=== PATIENT | female | born 1940 | race Caucasian/White ===

== ENCOUNTER → 2016-10-20 | Outpatient (CLI) | payer MEDICARE, BC ==
[~2016-10-20] MED LIST: B COMPLEX1 TAB.SA PO; EVISTA60 M1 PO; EVISTA60 MG PO; FISH OIL 1,0001 CAP PO; FOLIC ACID PO; LEUCOVORIN CALCI5 MG PO; LOTREL 5/20 MG1 CAP PO; METHOTREXATE2.5 MG PO; MULTI-VIT/MIN P1 TAB PO; OYSTER CALCIUM500 MG PO; SYNTHROID PO; VITAMIN D250000 UNIT PO; ZETIA PO
--- NOTE | ~2016-10-20 | MY29 ---
[facility] A Service of [facility] / [facility] RADIOLOGY TEXT RESULTS PATIENT: GERA WU LOCATION: [facility] : 38 UNIT #: [id number] AGE: [address]: Melita Lechuga MD SEX: F ORDER DR: [id number] [facility] [address] [place], [place] [address] [id number] O MR#: [id number] #: [id number] NAME: GERA WU : 1940 SEX: F STUDY DATE/TIME: 10/20/2016 11:38 UNIT: [facility] ROOM: STUDY DESCRIPTION: MY NIC SCREENING W/ CAD BILAT Attending Physician: Melita Lechuga M.D. Referring Physician: Melita Lechuga M.D. Ordering Physician: Melita Lechuga M.D. Primary Care Physician: Melita Lechuga M.D. MEDICAL IMAGING REPORT This report is preliminary unless electronic signature is present EXAM Digital screening mammogram 10/20/2016 HISTORY 76-year-old woman no risk elevation. Annual screen. COMPARISON Mammograms date to 01/21/2012 with most recent 06/02/2015 FINDINGS Digital imaging of each breast was completed utilizing screening protocol. Review includes FDA-approved CAD device. Breast parenchyma is predominantly fatty replaced. Subareolar opacities and duct prominence bilaterally are stable. I see no suspicious mass characteristics. There are no suspicious microcalcifications and no architectural deformity. IMPRESSION Negative mammogram. Annual screening recommended. Patients over the age of 40 are entered into a reminder system with target due date for the next mammogram. A result letter will also be sent to the patient. BIRADS: 1, negative. Dictated by... Nawaf Cardona M.D. THIS IS AN ELECTRONICALLY VERIFIED REPORT Nawaf Cardona M.D. at 10/20/2016 1:57 PM MILLER/tarun [facility] A Service of [facility] RADIOLOGY TEXT RESULTS PATIENT: GERA WU LOCATION: [facility] : 38 UNIT #: [id number] AGE: [address]: Melita Lechuga MD SEX: F ORDER DR: TD: 10/20/2016 13:35 JOB #: [id number] MEDICAL IMAGING REPORT Page 1 of 1 COPY
== END | disposition home or self-care (01) ==
LOC: CWCC 11:01
DX: Z12.31 Encounter for screening mammogram for malignant neoplasm of breast (principal)
CPT/HCPCS: G0202